=== PATIENT | male | born 1980 | race Caucasian/White ===

== ENCOUNTER → 2016-07-21 | Outpatient (CLI) | payer OTHER ==
[~2016-07-21] MED LIST: BACTRIM DS 8001 TAB PO; IBU-8800 MG PO; LISINOPRIL 20MG20 MG PO; LISINOPRIL40 MG PO; MEDROL 4MG. DOSE4 MG PO; TESSALON PERLE100 M1 PO; ZITHROMAX Z PA250 MG PO
[2016-07-22 08:47] LABS: Testosterone 192 ng/dL (348-1197)
== END ==
LOC: LAB 08:34
PROVIDERS: Internal Medicine Adolescent Medicine
DX: Z87.438 Personal history of other diseases of male genital organs (principal)